=== PATIENT | male | born 1955 | race Caucasian/White ===

== ENCOUNTER 2021-11-08 13:23 | Outpatient (CLI) | payer BC | END 2021-11-08 23:59 | disposition home or self-care (01) | LOC: VAS 13:23 | PROVIDERS: ATTEND Surgery | DX: M25.562 Pain in left knee (principal); R22.42 Localized swelling, mass and lump, left lower limb; Z95.820 Peripheral vascular angioplasty status with implants and grafts | CPT/HCPCS: 93926; 93971 ==